=== PATIENT | female | born 1965 | race Caucasian/White ===

== ENCOUNTER 2016-04-23 07:34 | Day surgery (SDC) | payer OTHER ==
[~2016-04-23] VITALS: Ht 165.1 cm; Wt 87.0 kg
[~2016-04-23 07:34] MED LIST: ATIVAN 1MG T1 MG/TAB PO; CIPRO 500MG TA500 MG PO; FLAGYL500 MG PO; NORCO 325 MG-51 TAB PO; SYNTHROID0.05 MG/TA PO; WELLBUTRIN SR150 M1 PO; ZOFRAN 4MG T4 MG/TAB PO; ZOFRAN ODT4 MG PO
[2016-04-23] MEDS ORDERED: ATIVAN 0.50.5 MG/TAB PO (08:13)
[2016-04-23 08:37] VITALS: BP 126/69; PULSE 64; TEMP 98.1
[2016-04-23 09:50] VITALS: BP 103/57; PULSE 67; TEMP 98.1
[2016-04-23 10:05] VITALS: BP 100/73; PULSE 57
[2016-04-23 10:20] VITALS: BP 89/61; PULSE 55
[2016-04-23 10:35] VITALS: BP 92/63; PULSE 55
[2016-04-23 11:38] VITALS: BP 94/69; PULSE 60
== END 2016-04-23 10:55 | disposition home or self-care (01) ==
LOC: SDCO 07:34
DX: Z80.0 Family history of malignant neoplasm of digestive organs (principal); Z83.71 Family history of colonic polyps; D12.2 Benign neoplasm of ascending colon; K64.0 First degree hemorrhoids; K57.30 Diverticulosis of large intestine without perforation or abscess without bleeding
CPT/HCPCS: OP; J2250; J3010; J7030

== ENCOUNTER 2016-07-17 20:24 | Emergency (ER) | payer OTHER ==
[~2016-07-17] VITALS: Ht 165.1 cm; Wt 86.4 kg
[~2016-07-17 20:24] MED LIST changes: +ATIVAN 0.50.5 MG/TAB PO
[2016-07-17 20:28] VITALS: TEMP 98.1
[2016-07-17 20:54] LABS: BASO # 0.1 (0.0-0.2); BASO % 0.9 % (0.0-2.0); EOS # 0.1 (0.0-0.7); GRAN # 4.8 (1.4-6.5); GRAN % 53.1 % (42.2-75.2); HEMATOCRIT 43.9 % (37.0-47.0); HEMOGLOBIN 14.7 g/dl (12.5-16.0); LYMPH # 3.4 (1.2-3.4); LYMPH % 37.7 % (20.0-51.0); MEAN CELL VOLUME 85 fl (80.0-100.0); MEAN CORPUSCULAR HEMOGLOBIN 28 pg (27.0-31.0); MEAN CORPUSCULAR HGB CONC 34 g/dl (33.0-37.0); MEAN PLATELET VOLUME 11.6 fl (7.4-10.4); MONO # 0.7 (0.1-0.6); MONO % 7.2 % (1.7-9.3); PLATELET COUNT 196 K/mm3 (130-400); RED BLOOD COUNT 5.17 M/mm3 (4.10-5.30); REDCELL DISTRIBUTION WIDTH-CV 13.7 % (11.5-14.5); WHITE BLOOD COUNT 9.1 K/mm3 (4.8-10.8)
[2016-07-17 21:05] LABS: ADJUSTED CALCIUM 9.7 mg/dL (8.4-10.2); ALBUMIN 4.9 gm/dL (3.5-5.0); CALCIUM 10.4 mg/dL (8.4-10.2); CREATININE, serum 0.79 mg/dL (0.52-1.25); POTASSIUM 3.7 mmol/L (3.4-5.0); TOTAL PROTEIN 8.3 gm/dL (6.4-8.2)
[2016-07-17 22:00] LABS: PH 7 (5-8); SQUAMOUS EPITHELIAL 0-2 /hpf; URINE APPEARANCE Clear; URINE BACTERIA None Seen /hpf; URINE BILIRUBIN Negative (NEGATIVE); URINE BLOOD 1+ (NEGATIVE); URINE COLOR Straw; URINE GLUCOSE Negative (NEGATIVE); URINE KETONE Trace (NEGATIVE); URINE RBC 0-2 /hpf; URINE UROBILINOGEN Negative (NEGATIVE)
[2016-07-17 23:44] VITALS: BP 124/65; PULSE 63
== END 2016-07-17 23:20 | disposition home or self-care (01) ==
LOC: COL.ER 20:24
PROVIDERS: Emergency Medicine
DX: K57.32 Diverticulitis of large intestine without perforation or abscess without bleeding (principal); R10.31 Right lower quadrant pain; R11.0 Nausea
CPT/HCPCS: J1170; J1885; J2550; J7030; Q9967

== ENCOUNTER → 2017-12-12 | Outpatient (CLI) | payer BC ==
[~2017-12-12] VITALS: Ht 162.6 cm; Wt 100.0 kg
[~2017-12-12] MED LIST changes: +CLARITIN-D 10 M1 T24 PO; +EFFEXOR XR75 MG/CAP PO; +FLONASE NASAL S16 GM NS; +IMITREX 25MG TA25 MG PO; +LOMAIRA8 MG PO; -SYNTHROID0.05 MG/TA PO; +SYNTHROID0.075 MG/T PO; +TOPAMAX 25MG25 M1 PO
[2017-12-12 07:59] VITALS: BP 138/88; PULSE 60
== END ==
LOC: LIGHT 07:51
DX: R73.01 Impaired fasting glucose (principal); F32.9 Major depressive disorder, single episode, unspecified; E03.9 Hypothyroidism, unspecified; E66.01 Morbid (severe) obesity due to excess calories; Z68.37 Body mass index [BMI] 37.0-37.9, adult; Z71.3 Dietary counseling and surveillance
CPT/HCPCS: G0463

== ENCOUNTER → 2017-12-24 | Outpatient (CLI) | payer BC | LOC: LIGHT 13:57 | DX: R73.01 Impaired fasting glucose (principal); E03.9 Hypothyroidism, unspecified; F32.9 Major depressive disorder, single episode, unspecified; E66.9 Obesity, unspecified; Z68.37 Body mass index [BMI] 37.0-37.9, adult; Z71.3 Dietary counseling and surveillance ==

== ENCOUNTER → 2017-12-24 | Outpatient (CLI) | payer BC | LOC: LIGHT 09:12 | DX: R73.01 Impaired fasting glucose (principal); E03.9 Hypothyroidism, unspecified; F32.9 Major depressive disorder, single episode, unspecified; E66.9 Obesity, unspecified; Z68.37 Body mass index [BMI] 37.0-37.9, adult; Z71.3 Dietary counseling and surveillance ==

== ENCOUNTER → 2018-01-16 | Outpatient (CLI) | payer BC ==
[~2018-01-16] VITALS: Ht 162.6 cm; Wt 97.1 kg
[2018-01-16 10:33] VITALS: BP 120/60; PULSE 72
== END ==
LOC: LIGHT 10:25
DX: R73.01 Impaired fasting glucose (principal); E03.9 Hypothyroidism, unspecified; F32.9 Major depressive disorder, single episode, unspecified; E66.9 Obesity, unspecified; Z68.36 Body mass index [BMI] 36.0-36.9, adult; Z71.3 Dietary counseling and surveillance
CPT/HCPCS: G0463

== ENCOUNTER → 2018-03-07 | Outpatient (CLI) | payer BC ==
[~2018-03-07] MED LIST changes: +SAXENDA6 MG/ML SQ
== END ==
LOC: MC.RAD 02-22 11:00
DX: Z12.31 Encounter for screening mammogram for malignant neoplasm of breast (principal)

== ENCOUNTER → 2018-03-20 | Outpatient (CLI) | payer BC ==
[~2018-03-20] VITALS: Ht 162.6 cm; Wt 98.2 kg
[~2018-03-20] MED LIST changes: +BELVIQ PO
[2018-03-20 11:30] VITALS: BP 130/94; PULSE 80
== END ==
LOC: LIGHT 10:13
DX: R73.01 Impaired fasting glucose (principal); E03.9 Hypothyroidism, unspecified; F32.9 Major depressive disorder, single episode, unspecified; E66.9 Obesity, unspecified; Z68.37 Body mass index [BMI] 37.0-37.9, adult; Z71.3 Dietary counseling and surveillance
CPT/HCPCS: G0463

== ENCOUNTER → 2018-04-24 | Outpatient (CLI) | payer BC ==
[~2018-04-24] VITALS: Ht 162.6 cm; Wt 97.3 kg
[2018-04-24 11:48] VITALS: BP 126/80; PULSE 76
== END ==
LOC: LIGHT 11:36
DX: R73.01 Impaired fasting glucose (principal); E03.9 Hypothyroidism, unspecified; F32.9 Major depressive disorder, single episode, unspecified; E66.9 Obesity, unspecified; Z68.36 Body mass index [BMI] 36.0-36.9, adult; Z71.3 Dietary counseling and surveillance
CPT/HCPCS: G0463

== ENCOUNTER → 2018-06-05 | Outpatient (CLI) | payer BC ==
[~2018-06-05] VITALS: Ht 162.6 cm; Wt 95.7 kg
[2018-06-05 10:38] VITALS: BP 130/82; PULSE 72
== END ==
LOC: LIGHT 07:20
DX: R73.01 Impaired fasting glucose (principal); E03.9 Hypothyroidism, unspecified; F32.9 Major depressive disorder, single episode, unspecified; E66.9 Obesity, unspecified; Z68.36 Body mass index [BMI] 36.0-36.9, adult; Z71.3 Dietary counseling and surveillance
CPT/HCPCS: G0463

== ENCOUNTER → 2018-07-22 | Outpatient (CLI) | payer BC | LOC: MC.RAD 12:58 | DX: N63.21 Unspecified lump in the left breast, upper outer quadrant (principal) | CPT/HCPCS: G0279 ==

== ENCOUNTER → 2019-04-16 | Outpatient (CLI) | payer BC | LOC: MC.RAD 10:56 | DX: Z12.31 Encounter for screening mammogram for malignant neoplasm of breast (principal) ==

== ENCOUNTER → 2019-12-24 | Outpatient (CLI) | payer BC ==
[~2019-12-24] VITALS: Ht 162.6 cm; Wt 98.9 kg
[~2019-12-24] MED LIST changes: +PHENTERMINE15 MG PO; -SYNTHROID0.075 MG/T PO; +SYNTHROID0.1 MG/TAB PO
[2019-12-24 16:12] VITALS: BP 126/76; PULSE 76
== END ==
LOC: LIGHT 05-28 10:10
DX: E66.8 Other obesity (principal); Z68.37 Body mass index [BMI] 37.0-37.9, adult; R73.01 Impaired fasting glucose
CPT/HCPCS: G0463

== ENCOUNTER 2020-02-21 04:19 | Inpatient (IN) | payer BC ==
[2020-02-21] VITALS (11 sets, daily range): BP systolic 119–139; BP diastolic 51–77; PULSE 72–81; TEMP 97.9–99
[~2020-02-21] VITALS: Ht 162.6 cm; Wt 94.6 kg
[2020-02-21 05:25] LABS: BASO # 0.1 (0.0-0.2); BASO % 0.5 % (0.0-2.0); EOS # 0.1 (0.0-0.7); EOS % 0.9 % (0-4.0); GRAN # 6.7 (1.4-6.5); GRAN % 69.6 % (42.2-75.2); HEMATOCRIT 43.1 % (37.0-47.0); HEMOGLOBIN 14.2 g/dl (12.5-16.0); LYMPH # 2.1 (1.2-3.4); LYMPH % 21.7 % (20.0-51.0); MEAN CELL VOLUME 86 fl (80.0-100.0); MEAN CORPUSCULAR HEMOGLOBIN 28 pg (27.0-31.0); MEAN CORPUSCULAR HGB CONC 33 g/dl (33.0-37.0); MONO # 0.7 (0.1-0.6); PLATELET COUNT 212 K/mm3 (130-400); RED BLOOD COUNT 5.04 M/mm3 (4.10-5.30); REDCELL DISTRIBUTION WIDTH-CV 13.8 % (11.5-14.5)
[2020-02-21 05:31] LABS: PROTHROMBIN TIME 11.1 SECONDS (9.7-12.8)
[2020-02-21 05:32] LABS: ALBUMIN 4.6 gm/dL (3.5-5.0); BILIRUBIN,TOTAL 0.3 mg/dL (0.0-1.0); CALCIUM 9.6 mg/dL (8.4-10.2); CREATININE, serum 0.68 (0.52-1.25); POTASSIUM 4.6 mmol/L (3.4-5.0); TOTAL PROTEIN 7.6 gm/dL (6.4-8.2)
[2020-02-21 05:33] LABS: PARTIAL THROMBOPLASTIN TIME 32.8 SECONDS (26.0-37.0)
--- NOTE | 2020-02-21 08:00 | NUR ---
Patient arrives to unit from ED. woody Hastings notified. Plans for surgery at 1000, patient notifed.
[2020-02-21] MEDS ORDERED: ASPI325T6 PO (09:57)
[2020-02-21] MEDS ORDERED: ROXICODONE 55 MG/TAB PO (09:57)
--- NOTE | 2020-02-21 10:00 | NUR ---
To surgery with surgical staff.
--- NOTE | 2020-02-21 10:39 | NUR ---
SW met with patient to complete intake. Patient states that she lives in [place] with her Aidan [phone]. Patient states that she does not utilize any DME, and is independent with ADL's. Patient provides that her PCP is Dr. Johnson, pharmacy is [facility] and that she is able to afford her medications. Patient provides that she does not have a DPOA-HC at this time and stated what she would like to appoint her spouse Aidan. Document presented to patient, completed, reviewed and signed with witness as Surgical nurse. Original document placed in chart and copies provided to patient. Patient states that she has no concerns about going home upon dc with that time comes. SW will continue to follow.
--- NOTE | 2020-02-21 14:30 | NUR ---
Patient returns from surgery. LLE with gauze and BLAS in place, no drainage noted. 1+ edema noted to left foot, unable to feel or wiggle toes. Right foot with 1+ edema and bruising noted. Post op exercises reviewed with patient.
--- NOTE | 2020-02-21 23:04 | NUR ---
PT NAUSEATED POST GETTING UP TO BSC. SEE MAR FOR NAUSEA. ICE TO RT FOOT. SPLIT TO RT FOOT INTACT. STILL NO SENSATION OR MOVEMNET OF TOES.
[2020-02-22 04:10] VITALS: BP 121/58; PULSE 72; TEMP 98.8
[2020-02-22] MEDS ORDERED: COMMODE MC (07:23)
--- NOTE | 2020-02-22 08:00 | NUR ---
PT A&O. VSS WITH NOTED BP OF 97/44. HEAD TO TOE ASSESSMENT DONE, SEE NOTES. PT LEFT FOOT WRAPED WITH SPLINT AND BLAS WRAP. PT STATES STARTING TO HAVE FEELING IN LEFT LEG. RIGHT ANKLE SWOLLEN, HAS SPRAIN FROM FALL. BOTH LEGS ELEVATED. NONE WEIGHT BEARING TO LLE. PIVOT TRANSFERS WITH MINIMAL ASSIST. TALKED WITH PT ABOUT GOING HOME TODAY. ANSWERED ALL QUESTIONS. PT LAYING IN BED. NO OTHER COMPLAINTS. CALL LIGHT IN REACH.
[2020-02-22 08:21] VITALS: BP 97/44; PULSE 72; TEMP 98.3
--- NOTE | 2020-02-22 10:24 | NUR ---
First visit from the table tender. prayed with patient. No other needs right now.
[2020-02-22 11:57] VITALS: BP 122/44; PULSE 64; TEMP 98.1
--- NOTE | 2020-02-22 13:20 | NUR ---
PATIENT DISCHARGING HOME VIA WC TO PERSONAL VEHICLE WHERE IS WAITING. GAVE DISCHARGE INSTRUCTIONS, PRESCRIPTIONS, AND F/U APT. PATIENT TO STOP BY [facility] FOR WALKER SCRIPT. ANSWERED ALL QUESTIONS/CONCERNS. STUDENT NURSE DC'D IV SITE AND COVERED WITH GAUZE & COBAN. PATIENT DISCHARGED.
--- NOTE | 2020-02-22 13:58 | NUR ---
PT notified [facility] that the patient is going to need a FWW. SW met with the patient and she is agreeable to getting the FWW at [facility]. The patient's attending is Dr. Rondon. [facility] contacted [facility] to obtain a script from Dr. Rondon or his PA. The sales receptionist reports that [facility] can fax the FWW script to [facility] for one of them to sign and fax back to this SW. [facility] faxed the script to [facility]. A signed script was not faxed back to the surgical unit. The patient's RN then got a call from Dr. Rondon. Dr. Rondon wanted to do a verbal order for the FWW. OREN confirmed with Suzette at [facility] that a verbal order would not work and that they would need a written order/script. OREN informed Dr. Rondon of this. Dr. Rondon wrote a script for the patient to supervisor picking crew at [facility] to then take to [facility]. OREN updated and faxed the patient's records to Whit at [facility]. No additional needs at this time.
== END 2020-02-22 13:20 | disposition home or self-care (01) | DRG 494 ==
LOC: COL.ER 04:19 → SURG 05:40
PROVIDERS: Emergency Medicine; ADMIT Orthopaedic Surgery Sports Medicine
PROC: 0QSK04Z Reposition Left Fibula with Internal Fixation Device, Open Approach (ICD-10-PCS; principal; 2020-02-22)
PROC: 0QSH04Z Reposition Left Tibia with Internal Fixation Device, Open Approach (ICD-10-PCS; 2020-02-22)
PROC: 0SSG04Z Reposition Left Ankle Joint with Internal Fixation Device, Open Approach (ICD-10-PCS; 2020-02-22)
DX: S82.842B Displaced bimalleolar fracture of left lower leg, initial encounter for open fracture type I or II (principal); F41.9 Anxiety disorder, unspecified; E03.9 Hypothyroidism, unspecified; S93.432A Sprain of tibiofibular ligament of left ankle, initial encounter; W19.XXXA Unspecified fall, initial encounter
CPT/HCPCS: A9284; C1713; J0690; J1100; J1170; J2250; J2270; J2405; J2704; J2795; J3010; J7030

== ENCOUNTER → 2020-05-16 | Outpatient (CLI) | payer BC ==
[~2020-05-16] MED LIST changes: +ASPI325T6 PO; +COMMODE MC; +ROXICODONE 55 MG/TAB PO
== END ==
LOC: MC.RAD 08:15
DX: Z12.31 Encounter for screening mammogram for malignant neoplasm of breast (principal)

== ENCOUNTER → 2021-06-08 | Outpatient (CLI) | payer BC | LOC: MC.RAD 10:26 | DX: Z12.31 Encounter for screening mammogram for malignant neoplasm of breast (principal) ==

== ENCOUNTER → 2023-08-23 | Outpatient (CLI) | payer BC | LOC: MC.RAD 13:41 | DX: Z12.31 Encounter for screening mammogram for malignant neoplasm of breast (principal) ==